=== PATIENT | female | born 1965 | race Caucasian/White ===

== ENCOUNTER 2017-02-14 10:04 | Emergency (ER) | payer SELFPAY ==
[~2017-02-14] VITALS: Ht 167.6 cm; Wt 57.1 kg
[~2017-02-14 10:04] MED LIST: BENZ100 PO; SYNT25TA PO
[2017-02-14 10:13] VITALS: BP 123/80; PULSE 69; RESP 15; TEMP 97.9; O2SAT 99
[2017-02-14] MEDS ORDERED: VENTAER INH (10:48)
[2017-02-14] MEDS ORDERED: LEVO75TA3 PO (10:48)
--- NOTE | 2017-02-14 10:56 | PD ---
HPI Chief Complaint: Abdominal Pain Time Seen by Provider: 10:44 Travel History International Travel<30 days: No Contact w/Intl Traveler<30days: No Traveled to known affect area: No History of Present Illness HPI The patient is a 66-[id number]-lao-year-old female who presents to the emergency department for abdominal pain. The patient states she developed lower abdominal pain and pelvic pain yesterday morning. The pain is located over the pelvic region, radiates to lower quadrants bilateral, sharp, constant, but not associated with any nausea, vomiting, diarrhea, or constipation. The patient's last menstrual cycle was January 23, 2017. She denies any previous abdominal surgeries. She denies any associated dysuria, frequency, urgency, vaginal discharge, or vaginal bleeding. Symptoms are moderate without any alleviating or exacerbating factors. She denies any associated fever, chills, sweats, or history of nephrolithiasis or diverticulitis. PFSH Past Medical History Asthma: Yes Cancer: Yes (SKIN) Thyroid Disease: Yes ?: Unknown Past Surgical History Other Surgery: Yes (SKIN CA) Social History Alcohol Use: Yes (ONE WINE DAILY) Tobacco Use: No Substance Use: No Allergies-Medications (Allergen,Severity, Reaction): Coded Allergies: amoxicillin (Unverified Allergy, Intermediate, Hives, 02/14/17) Reported Meds & Prescriptions Reported Meds & Active Scripts Active Reported Ventolin Hfa 18 GM Inh (Albuterol Sulfate) 90 Mcg/Act Aer 2 Puff INH Q4-6H PRN Levothyroxine (Levothyroxine Sodium) 75 Mcg Tab 75 Mcg PO DAILY Review of Systems Except as stated in HPI: all other systems reviewed are Neg General / Constitutional: No: Fever Gastrointestinal: Positive: Abdominal Pain, No: Nausea, Vomiting, Diarrhea Genitourinary: Positive: Pelvic Pain, No: Urgency, Frequency, Dysuria, Hematuria, Discharge, Vaginal Bleeding Skin: No Rash Physical Exam Narrative GENERAL: Awake, alert, nontoxic-appearing 52-year-old female who appears her stated age and is in no acute respiratory distress. SKIN: Focused skin assessment warm/dry. HEAD: Atraumatic. Normocephalic. EYES: Pupils equal and round. No scleral icterus. No injection or drainage. ENT: No nasal bleeding or discharge. Mucous membranes pink and moist. NECK: Trachea midline. No JVD. CARDIOVASCULAR: Regular rate and rhythm. No murmur appreciated. RESPIRATORY: No accessory muscle use. Clear to auscultation. Breath sounds equal bilaterally. GASTROINTESTINAL: Abdomen soft, mild suprapubic tenderness. No rebound tenderness, guarding, rigidity. Negative [employer]. Negative [employer]. Back: No CVA tenderness. MUSCULOSKELETAL: No obvious deformities. No clubbing. No cyanosis. No edema. NEUROLOGICAL: Awake and alert. No obvious cranial nerve deficits. Motor grossly within normal limits. Normal speech. PSYCHIATRIC: Appropriate mood and affect; insight and judgment normal. Data Data Last Documented VS Vital Signs Date Time Temp Pulse Resp B/P (MAP) Pulse Ox O2 Delivery O2 Flow Rate FiO2 02/14/17 10:13 97.9 69 15 123/80 (94) 99 Orders Orders Complete Blood Count With Diff (02/14/17 10:50) Comprehensive Metabolic Panel (02/14/17 10:50) Lipase (02/14/17 10:50) Urinalysis - C+S If Indicated (02/14/17 10:50) Iv Access Insert/Monitor (02/14/17 10:50) Ecg Monitoring (02/14/17 10:50) Oximetry (02/14/17 10:50) Sodium Chloride 0.9% Flush (Ns Flush) (02/14/17 11:00) Ketorolac Inj (Toradol Inj) (02/14/17 11:00) Ed Urine Pregnancytest Poc (02/14/17 10:50) Urine Culture (02/14/17 11:05) Ct Abd/Pel W/O Iv Contrast (02/14/17 ) Wet Prep Profile (02/14/17 11:31) Gc And Chlamydia Pcr (02/14/17 12:52) Labs Laboratory Tests Test 02/14/17 11:05 02/14/17 11:08 02/14/17 12:52 Urine Collection Type CLEAN CATCH Urine Color STRAW Urine Turbidity SLIGHT Urine pH 5.5 Urine Specific [place] 1.012 Urine Protein NEG mg/dL Urine Glucose (UA) NEG mg/dL Urine Ketones TRACE mg/dL Urine Occult Blood NEG Urine Nitrite NEG Urine Bilirubin NEG Urine Leukocyte Esterase NEG Urine WBC 0-2 /hpf Urine Squamous Epithelial Cells 6-8 /hpf Urine Amorphous Sediment FEW Urine Bacteria MOD /hpf Microscopic Urinalysis Comment CULTURE INDICATED Urine Collection Time 1105 White Blood Count 9.6 TH/MM3 Red Blood Count 4.98 MIL/MM3 Hemoglobin 14.6 GM/DL Hematocrit 43.5 % Mean Corpuscular Volume 87.3 FL Mean Corpuscular Hemoglobin 29.3 PG Mean Corpuscular Hemoglobin Concent 33.5 % Red Cell Distribution Width 12.7 % Platelet Count 210 TH/MM3 Mean Platelet Volume 8.5 FL Neutrophils (%) (Auto) 71.9 % Lymphocytes (%) (Auto) 16.8 % Monocytes (%) (Auto) 6.7 % Eosinophils (%) (Auto) 3.8 % Basophils (%) (Auto) 0.8 % Neutrophils # (Auto) 6.9 TH/MM3 Lymphocytes # (Auto) 1.6 TH/MM3 Monocytes # (Auto) 0.6 TH/MM3 Eosinophils # (Auto) 0.4 TH/MM3 Basophils # (Auto) 0.1 TH/MM3 CBC Comment DIFF FINAL Differential Comment Blood Urea Nitrogen 10 MG/DL Creatinine 0.67 MG/DL Random Glucose 84 MG/DL Total Protein 7.9 GM/DL Albumin 3.5 GM/DL Calcium Level 9.0 MG/DL Alkaline Phosphatase 16 U/L Aspartate Amino Transf (AST/SGOT) 9 U/L Alanine Aminotransferase (ALT/SGPT) 17 U/L Total Bilirubin 0.7 MG/DL Sodium Level 138 MEQ/L Potassium Level 3.4 MEQ/L Chloride Level 101 MEQ/L Carbon Dioxide Level 30.9 MEQ/L Anion Gap 6 MEQ/L Estimat Glomerular Filtration Rate 93 ML/MIN Lipase 256 U/L Clue Cells (Wet Prep) NONE SEEN Vaginal Trichomonas (Wet Prep) NONE SEEN Vaginal Yeast (Wet Prep) PRESENT MDM Medical Decision Making Medical Screen Exam Complete: Yes Emergency Medical Condition: Yes Medical Record Reviewed: Yes Interpretation(s) Last Impressions Abdomen/Pelvis CT 02/14/17 0000 Signed Impressions: Service Date/Time: Tuesday, February 14, 2017 11:55 - CONCLUSION: 1. No acute findings. 2. Sclerotic osseous lesions, probably representing bone islands, and low density areas in both adnexa, probably representing ovarian cysts, unchanged from prior CT April 2014. Manolo Raza MD Laboratory Tests Test 02/14/17 11:05 02/14/17 11:08 02/14/17 12:52 Urine Collection Type CLEAN CATCH Urine Color STRAW Urine Turbidity SLIGHT Urine pH 5.5 Urine Specific [place] 1.012 Urine Protein NEG mg/dL Urine Glucose (UA) NEG mg/dL Urine Ketones TRACE mg/dL Urine Occult Blood NEG Urine Nitrite NEG Urine Bilirubin NEG Urine Leukocyte Esterase NEG Urine WBC 0-2 /hpf Urine Squamous Epithelial Cells 6-8 /hpf Urine Amorphous Sediment FEW Urine Bacteria MOD /hpf Microscopic Urinalysis Comment CULTURE INDICATED Urine Collection Time 1105 White Blood Count 9.6 TH/MM3 Red Blood Count 4.98 MIL/MM3 Hemoglobin 14.6 GM/DL Hematocrit 43.5 % Mean Corpuscular Volume 87.3 FL Mean Corpuscular Hemoglobin 29.3 PG Mean Corpuscular Hemoglobin Concent 33.5 % Red Cell Distribution Width 12.7 % Platelet Count 210 TH/MM3 Mean Platelet Volume 8.5 FL Neutrophils (%) (Auto) 71.9 % Lymphocytes (%) (Auto) 16.8 % Monocytes (%) (Auto) 6.7 % Eosinophils (%) (Auto) 3.8 % Basophils (%) (Auto) 0.8 % Neutrophils # (Auto) 6.9 TH/MM3 Lymphocytes # (Auto) 1.6 TH/MM3 Monocytes # (Auto) 0.6 TH/MM3 Eosinophils # (Auto) 0.4 TH/MM3 Basophils # (Auto) 0.1 TH/MM3 CBC Comment DIFF FINAL Differential Comment Blood Urea Nitrogen 10 MG/DL Creatinine 0.67 MG/DL Random Glucose 84 MG/DL Total Protein 7.9 GM/DL Albumin 3.5 GM/DL Calcium Level 9.0 MG/DL Alkaline Phosphatase 16 U/L Aspartate Amino Transf (AST/SGOT) 9 U/L Alanine Aminotransferase (ALT/SGPT) 17 U/L Total Bilirubin 0.7 MG/DL Sodium Level 138 MEQ/L Potassium Level 3.4 MEQ/L Chloride Level 101 MEQ/L Carbon Dioxide Level 30.9 MEQ/L Anion Gap 6 MEQ/L Estimat Glomerular Filtration Rate 93 ML/MIN Lipase 256 U/L Clue Cells (Wet Prep) NONE SEEN Vaginal Trichomonas (Wet Prep) NONE SEEN Vaginal Yeast (Wet Prep) PRESENT Differential Diagnosis Differential diagnosis includes UTI, pyelonephritis, nephrolithiasis, diverticulitis, PID, cervicitis, ectopic , , atypical appendicitis. Narrative Course IV was established, labs are drawn and sent, and the patient was placed on cardiac telemetry monitoring and continuous pulse oximetry monitoring. Bedside UA test was obtained and UA was sent to lab. The patient was administered Toradol 30 mg intravenously for pain. UA test was negative. White count is unremarkable. Patient's LFTs are unremarkable. Pelvic exam was performed in the presence of a female nurse. There was mild erythema Cipro aspect of the cervical os, slightly worn appearance, with scant white creamy vaginal discharge. Wet prep and gonorrhea/chlamydia were sent to lab. CT reveals sclerotic bone lesions with no acute changes, no acute findings. Wet prep is positive free, patient will be treated for yeast vaginitis. Diflucan 150 mg orally 1. She is advised to follow-up with her primary physician. Return if symptoms worsen or progress. Diagnosis Primary Impression: Pelvic pain in female Additional Impression: Yeast vaginitis Patient Instructions: General Instructions Additional Instructions: Please provide the patient a copy of her CT results and lab results at discharge. Follow-up with your primary physician. Return if symptoms worsen or progress. Med/Other Pt SpecificInfo: Prescription(s) given Scripts Ibuprofen (Ibuprofen) 600 Mg Tab 600 MG PO Q6H Y for Pain/Inflammation, #20 TAB 0 Refills Prov: Inocente Atkinson MD 02/14/17 Fluconazole (Diflucan) 150 Mg Tab 150 MG PO ONCE for Infection, #1 TAB 0 Refills Prov: Inocente Atkinson MD 02/14/17 Disposition: 01 DISCHARGE HOME Condition: Stable Inocente Atkinson MD Feb 14, 2017 10:56
[2017-02-14] MEDS ORDERED: SODIUM CHLORIDE 0.9% FLUSH 10 ML FLUSH IV FLUSH PRN (11:00)
[2017-02-14] MEDS ORDERED: KETOROLAC TROMETHAMINE 30 MG/ML (IVP) VIAL IVP ONE (11:00)
[2017-02-14 11:20] LABS: BILIRUBIN, URINE NEG (NEG); BLOOD, URINE NEG (NEG); GLUCOSE,URINE NEG (NEG); KETONE, URINE TRACE mg/dL (NEG); NITRITE,URINE NEG (NEG); PH, URINE 5.5 (5.0-8.5); URINE LEUKOCYTE ESTERASE NEG (NEG)
[2017-02-14 11:20] LABS: AUTOMATED NEUTROPHIL # 6.9 TH/MM3 (1.8-7.7); BASOPHIL # 0.1 TH/MM3 (0-0.2); BASOPHIL % 0.8 % (0.0-2.0); EOSINOPHIL # 0.4 TH/MM3 (0-0.4); EOSINOPHIL % 3.8 % (0.0-4.0); HEMATOCRIT 43.5 % (35.0-46.0); HEMOGLOBIN 14.6 GM/DL (11.6-15.3); LYMPH % 16.8 % (9.0-44.0); LYMPHOCYTE # 1.6 TH/MM3 (1.0-4.8); MEAN CELL VOLUME 87.3 FL (80.0-100.0); MEAN CORPUSCULAR HEMOGLOBIN 29.3 PG (27.0-34.0); MEAN CORPUSCULAR HGB CONC 33.5 % (32.0-36.0); MEAN PLATELET VOLUME 8.5 FL (7.0-11.0); MONO % 6.7 % (0.0-8.0); MONOCYTE # 0.6 TH/MM3 (0-0.9); NEUT % 71.9 % (16.0-70.0); PLATELET COUNT 210 TH/MM3 (150-450); RED BLOOD COUNT 4.98 MIL/MM3 (4.00-5.30); RED CELL DISTRIBUTION WIDTH 12.7 % (11.6-17.2); WHITE BLOOD COUNT 9.6 TH/MM3 (4.0-11.0)
[2017-02-14 11:26] LABS: URINE COLOR STRAW (YELLW/STRAW)
[2017-02-14 11:27] LABS: CHLORIDE 101 MEQ/L (98-107); SODIUM (NA) 138 MEQ/L (136-145)
[2017-02-14 11:27] LABS: AMORPHOUS SEDIMENT, URINE FEW; BACTERIA, URINE MOD /hpf; WBC, URINE 0-2 /hpf (0-5)
[2017-02-14 11:31] LABS: ALBUMIN 3.5 GM/DL (3.4-5.0); BICARBONATE 30.9 MEQ/L (21.0-32.0); BLOOD UREA NITROGEN 10 MG/DL (7-18); GLUCOSE,RANDOM 84 MG/DL (74-106); LIPASE 256 U/L (73-393)
[2017-02-14 11:33] LABS: ALT (GPT) 17 U/L (10-53)
[2017-02-14 11:34] LABS: AST (GOT) 9 U/L (15-37); CREATININE 0.67 MG/DL (0.50-1.00); GLOMERULAR FILTRATION RATE 93 ML/MIN (>89)
[2017-02-14 11:35] LABS: TOTAL BILIRUBIN ADULT 0.7 MG/DL (0.2-1.0); TOTAL PROTEIN 7.9 GM/DL (6.4-8.2)
[2017-02-14 11:36] LABS: ALKALINE PHOSPHATASE 16 U/L (45-117)
--- NOTE | 2017-02-14 12:50 | RADRPT ---
EXAM DATE/TIME: 02/14/2017 11:55 [facility] COMPARISON: CT ABDOMEN & PELVIS W/O CONTRAST, May 05, 2014, 15:38. INDICATIONS : Lower abdominal pain. ORAL CONTRAST: No oral contrast ingested. RADIATION DOSE: 5.34 CTDIvol (mGy) MEDICAL HISTORY : Skin cancer. SURGICAL HISTORY : None. ENCOUNTER: Initial ACUITY: 2 days PAIN SCALE: 5/10 LOCATION: lower quadrant TECHNIQUE: Volumetric scanning of the abdomen and pelvis was performed. Using automated exposure control and ad justment of the mA and/or kV according to patient size, radiation dose was kept as low as reasonably achievable to obtain optimal diagnostic quality images. DICOM format image data is available electro nically for review and comparison. FINDINGS: LOWER LUNGS: The visualized lower lungs are clear. LIVER: Homogeneous density without lesion. There is no dilation of the biliary tree. No calcified gallston es. SPLEEN: Normal size without lesion. PANCREAS: Within normal limits. KIDNEYS: Normal in size and shape. There is no mass, stone, or hydronephrosis. ADRENAL GLANDS: Within normal limits. VASCULAR: There is no aortic aneurysm. BOWEL/MESENTERY: No dilated loops of small or large bowel. ABDOMINAL WALL: Within normal limits. RETROPERITONEUM: There is no lymphadenopathy. BLADDER: No wall thickening or mass. REPRODUCTIVE: Anteverted uterus. Bilateral low density areas in the adnexa measuring 2.9 cm on the left and 2.0 cm on the right, stable from prior, probable ovarian cysts. No evidence of free fluid. INGUINAL: There is no lymphadenopathy or hernia. MUSCULOSKELETAL: Scattered osteosclerotic lesions in the right posterior/superior acetabulum, medial right iliac bone, and L4 vertebral body stable from prior exam in 2014. CONCLUSION: 1. No acute findings. 2. Sclerotic osseous lesions, probably representing bone islands, and low density areas in both adnex a, probably representing ovarian cysts, unchanged from prior CT April 2014. Manolo Raza MD on February 14, 2017 at 12:44 Board Certified Radiologist. This report was verified electronically.
[2017-02-14] MEDS ORDERED: DIFL150T PO (13:18)
[2017-02-14] MEDS ORDERED: IBUP-232 PO (13:18)
[2017-02-14 13:33] VITALS: BP 113/66
== END 2017-02-14 13:35 | disposition home or self-care (01) ==
LOC: PHED 10:04
DX: R10.2 Pelvic and perineal pain (principal); B37.3 Candidiasis of vulva and vagina
CPT/HCPCS: 74176; 80053; 81001; 83690; 84703; 85025; 87086; 87210; 87491; 87591; 96374; 99285; J1885